=== PATIENT | male | born 1935 ===

== ENCOUNTER 2022-10-08 17:16 | Inpatient (IN) | payer OTHER ==
[~2022-10-08] VITALS: Ht 177.8 cm; Wt 91.2 kg
--- NOTE | 2022-10-08 18:52 | NUR ---
Admit note Receivied report from Janette at [facility], pt to room via ambulance transport at 1745. Pt alert, oriented, [place]. Pt orineted to room and call light. Educated on fall risk and bed alarm. Bed in low, locked, bed alarm on, call light within reach. Pt denies pain, chest pain/pressure, sob, nausea, dizziness and numb/tingling. Blood noted at groin and noted coming from meatus, catheter in place, placed at previous hospital, mega care and cath care completed. Tele junctional rhythm noted, md aware, bp stable. Spo2 >90% on ra, breahting even and unlabored. Abd soft, nontender with normoactive bt. Edema noted ble 1+. Other vss. No other acute changes noted. Will continue to monitor.
--- NOTE | 2022-10-08 21:02 | NUR ---
ASSUMPTION OF CARE THIS RN ASSUMED CARE OF PATIENT AT 1900. REPORT TAKEN FROM RUDY GRAY. /DAUGHTER AT BEDSIDE DURING SHIFT CHANGE. THIS RN WENT OVER MEDICAL HISTORY D/T PATIENT BEING VERY [place]. PATIENT A&O X3, UNSURE OF SPECIFIC DAY BUT KNOWN MONTH/YEAR. FORGETFUL OF STAFF/CARE AND CURRENT ILLNESS. OTHERWISE PATIENT ANSWERS QUESTIONS APPROPRIATELY AND IS COOPERATIVE WITH CARE. PATIENT WEAK WITH TURNING. SALINAS CATHETER PRESENT PRIOR TO ADMIT AND DRAINING TO GRAVITY; BLOOD NOTED AROUND URETHRA. MEPIPLEX ON COCCYX, BILATERAL ELBOWS AND HEELS D/T REDNESS AND SORENESS. ACCELERATED JUNCTIONAL RHTYHM NOTED ON MONITOR WITH HR 60-70'S. BP STABLE. AFEBRILE. SPO2 >92% ON RA. 1L NS INFUSING PER EMAR. BED IN LOWEST POSITION AND CALL LIGHT WITHIN REACH. BED ALARM ON FOR SAFETY.
--- NOTE | 2022-10-08 21:30 | NUR ---
PATIENT UPDATE PATIENT WITH 24 SECONDS OF VTACH ON MONITOR. PATIENT ASSESSED DURING AND WAS ABLE TO ANSWER QUESTIONS AND DENIED ANY S/S OF DISTRESS; NO S/S OF DISTRESS NOTED BY THIS RN EITHER. PATIENT RETURNED TO ACCELERATED JUNCTIONAL RHYTHM AFTER. VITALS REMAIN STABLE. CALL PLACED TO MD WALKER REGARDING EPISODE. MD WALKER WITH ORDERS FOR MAGNESIUM DRAW ADDED ONTO MORNING LABS; NO FURTHER ORDERS OR INTERVENTIONS DONE AT THIS TIME.
[2022-10-09 01:42] LABS: Albumin, Blood 2.3 g/dL (3.4-5.0); Albumin/Globulin Ratio 0.7 (0.8-1.8); Bilirubin, Total 1.4 mg/dL (0.1-1.0); Bun/Creatinine Ratio 14.6 (12.0-20.0); Calcium, Blood 7.9 mg/dL (8.5-10.1); Creatinine, Blood 3.5 mg/dL (0.60-1.20); Globulin, Blood 3.3 g/dL (2.2-4.0); Magnesium, Blood 1.8 mg/dL (1.6-2.4); Potassium, Blood 4.2 mmol/L (3.5-5.5); Total Protein, Blood 5.6 g/dL (6.4-8.2)
[2022-10-09 01:50] LABS: Hematocrit 34.9 % (37.0-53.0); Mean Corpuscular HGB Conc 34.4 g/dL (31.5-36.5); Mean Corpuscular Volume 90 fL (80-100); Mean Platelet Volume 12.6 fL (9.1-12.4); Platelet Count 130 K/mm3 (150-400); RDW Coefficient Variation 14.1 % (11.7-14.2); RDW Standard Deviation 46.1 fL (35.1-46.3); Red Blood Cell Count 3.87 M/mm3 (4.30-5.90); White Blood Cell Count 41.05 K/mm3 (4.00-11.30)
[2022-10-09 02:22] LABS: BAND PERCENT MAN 6 % (0-8); BASOPHILS PERCENT MAN 0 % (0-2); EOSINOPHILS PERCENT MAN 0 % (0-6); METAMYELOCYTE ABSOLUTE MAN 0.82 K/mm3 (0.00-0.00); METAMYELOCYTE PERCENT MAN 2 % (0-0); MONOCYTES ABSOLUTE MAN 0.82 K/mm3 (0.16-1.47); MONOCYTES PERCENT MAN 2 % (4-13); SEG NEUTROPHILS PERCENT MAN 90 % (41-73); TOTAL CELLS COUNTED 100
--- NOTE | 2022-10-09 04:52 | NUR ---
SHIFT SUMMARY NO ACUTE CHANGES SINCE PREVIOUS NOTE. NO CHANGES TO NEURO. MEPIPLEX ON BILATERAL HEELS, ELBOWS, AND COCCYX C/D/I. ASSISTING WITH REPOSITIONING NEEDED. CATHETER DRAINING TEA COLORED URINE TO GRAVITY, PT CONTINUES TO HAVE A SMALL AMOUNT OF BLOOD AT URETHRAL MEATUS. BP STABLE. AFEBRILE. SPO2 >92% ON RA. BED IN LOWEST POSITION, BED ALARM ON, CALL LIGHT WITHIN REACH. THIS RN WILL CONTINUE TO MONITOR UNTIL SHIFT CHANGE AT 0700.
--- NOTE | 2022-10-09 13:28 | NUR ---
Echocardiogram completed.
--- NOTE | 2022-10-09 18:35 | NUR ---
PT SUMMARY: PT ALERT AND ORIENTED X3, FORGETFUL AT TIMES, [place], HEARING AID IN USE ALL SHIFT. VITALS HRR JR BBB 60-80'S, BP SYSTOLIC 140-160'S, SATS ABOVE 95% ON RA, AFEBRILE. PT 1PA TO TRANSFER VIA GAITBELT AND WALKER, PT IS WEAK AND DECONDITIONED IN GENERAL, PT HAS BEEN GETTING UP TO USE BEDSIDE COMMODE HAD 3 EPISODES OF SMALL LOOSE BMS MOSTLY PASSING GAS. POOR APPETITE. PT STARTED ON MAINTENANCE FLUIDS NS RUNNING AT 75MLS/HR AT THIS TIME, URINE CLOUDY DARK YELLOW IN COLOR HAD 400MLS OUTPUT FOR THE SHIFT. DAUGHTER AND CAME IN ALL THE WAY FROM [place], WAS GIVEN UPDATE REGARDING PT'S STATUS. CHEST XRAY AND ECHO WAS DONE TODAY, AWAITING FOR RESULTS, FOR REPEAT EKG IN AM. PT HAS BEEN PLEASANT AND COOPERATIVE FOR THE SHIFT, CALLS APPROPIRATELY, PT NOW IN BED RESTING CALL LIGHTS IN REACH WILL REPORT TO ONCOMING SHIFT
--- NOTE | 2022-10-09 22:40 | NUR ---
ASSUMPTION OF CARE THIS RN ASSUMED CARE OF PATIENT AT 1900. REPORT TAKEN FROM DANIEL GRAY. PATIENT ALERT AND ORIENTED X3. KNOWS MONTH/YEAR BUT CONFUSED ABOUT DATE. PT REMEMBERED THIS RN FROM PREVIOUS NIGHT. PATIENT DENIES CHEST PAIN/PRESSURE. ACC JUNCTIONAL RHYTHM NOTED ON MONITOR WITH BBB AND OCCASIONAL PVC RUNS. HR 60-70'S. BP STABLE. AFEBRILE. ON RA WITH SPO2 >92%. PATIENT IS ABLE TO MAKE NEEDS KNOWN. KIANA. HEARING AIDES CHARGING ON BEDSIDE TABLE. ELEVATING BLE. REPOSITIONING Q2HRS AND NEEDED D/T WEAKNESS. PATIENT IS ABLE TO REPOSITION SELF IN BED BUT REQUIRES OCCASIONAL ASSISTANCE. NS INFUSING AT 75MLS/HR PER EMAR. SALINAS CATHETER DRAINING DARK/TEA/LYNETTE COLORED URINE. BLOOD NOTED AT MEATUS. MEPIPLEXES ON BILAT ELBOWS AND HEELS. MEPIPLEX ON COCCYX. BED IN LOWEST POSITION AND CALL LIGHT WITHIN REACH.
[2022-10-10 04:14] LABS: BASOPHILS PERCENT AUTO 0 % (0-2); EOSINOPHILS ABSOLUTE AUTO 0.22 K/mm3 (0.00-0.68); EOSINOPHILS PERCENT AUTO 1 % (0-6); Hemoglobin 11.8 g/dL (13.5-17.5); IMMATURE GRAN PERCENT AUTO 1 % (0-1); LYMPHOCYTES ABSOLUTE AUTO 0.69 K/mm3 (0.84-5.20); LYMPHOCYTES PERCENT AUTO 3 % (21-46); MONOCYTES ABSOLUTE AUTO 0.74 K/mm3 (0.16-1.47); MONOCYTES PERCENT AUTO 3 % (4-13); Mean Corpuscular HGB 30.8 pg (26.0-34.0); Mean Corpuscular HGB Conc 34.7 g/dL (31.5-36.5); Mean Corpuscular Volume 89 fL (80-100); Mean Platelet Volume 12.5 fL (9.1-12.4); NEUTROPHILS PERCENT AUTO 93 % (41-73); Platelet Count 135 K/mm3 (150-400); RDW Coefficient Variation 14.2 % (11.7-14.2); RDW Standard Deviation 45.7 fL (35.1-46.3); Red Blood Cell Count 3.83 M/mm3 (4.30-5.90); White Blood Cell Count 27.85 K/mm3 (4.00-11.30)
[2022-10-10 04:50] LABS: Albumin, Blood 2.2 g/dL (3.4-5.0); Albumin/Globulin Ratio 0.6 (0.8-1.8); Bilirubin, Total 0.9 mg/dL (0.1-1.0); Bun/Creatinine Ratio 20.1 (12.0-20.0); Calcium, Blood 7.9 mg/dL (8.5-10.1); Creatinine, Blood 3.38 mg/dL (0.60-1.20); Globulin, Blood 3.4 g/dL (2.2-4.0); Magnesium, Blood 1.6 mg/dL (1.6-2.4); Phosphorus, Blood 3.2 mg/dL (2.5-4.9); Potassium, Blood 3.9 mmol/L (3.5-5.5); Total Protein, Blood 5.6 g/dL (6.4-8.2)
--- NOTE | 2022-10-10 06:10 | NUR ---
SHIFT SUMMARY NO ACUTE CHANGES OVERNIGHT. PATIENT'S VITALS STABLE. NO CHANGES SINCE PREVIOUS NOTE. SEE ASSESSMENT. EKG RECEIVED THIS AM AT 0500, SEE CHART. PATIENT ASSISTED WITH REPOSITIONING Q2HRS OR NEEDED. EXTREMETIES ELEVATED. MEPIPLEX ON BILAT ELBOWS/HEELS AND COCCYX C/D/I. PATIENT CALLING APPROPRIATELY. SALINAS CATHETER PATENT AND DRAINING DARK YELLOW URINE TO GRAVITY. URINE OUTPUT IMPROVED DURING THIS SHIFT. NS INFUSING PER EMAR. BED IN LOWEST POSITION AND CALL LIGHT WITHIN REACH. THIS RN WILL CONTINUE TO MONITOR UNTIL SHIFT CHANGE AT 0700.
--- NOTE | 2022-10-10 11:50 | NUR ---
Pt resting in bed and is A&O. Dr Rock just leaving room. Pt's spouse and daughter at bedside. Pt requests this RN to speak with family and states being hard of hearing. Reviewed plan of care and offered therapeutic listening. Pt and family confirms Pt's wishes for DNR. Family reports having copy of POLST in care and will bring in. Continued supportive visit. Incident Response Lead in to see Pt. Ended visit. Daughter provides POLST. Obtained copy of POLST and sent to medical records via hospital tube sytem. Palliative Care will remain available
[2022-10-10 12:41] LABS: CPK Creatine Kinase 303 U/L (39-308); Lactate Dehydrogenase (Ld),Bld 373 U/L (100-240)
[2022-10-10 13:12] LABS: Source, Urine Clean Catch
[2022-10-10 13:49] LABS: Appearance, Urine Cloudy (Clear); Bilirubin, Urine Neg (Neg); Blood, Urine 4+ (Neg); Glucose Qualitative, Urine Neg (Neg); Ketones, Urine Neg (Neg); Leukocyte Esterase, Urine 3+ (Neg); Nitrite, Urine Neg (Neg); Protein, Urine 1+ (Neg); Specific Gravity, Urine 1.015 (1.003-1.022); Urobilinogen, Urine NORM (Normal)
[2022-10-10 15:28] LABS: Color, Urine Pale Yellow (P-Yellow)
[2022-10-10 15:30] LABS: Mucus Mod (0-Heavy); Squamous Epithelial Cells Few /hpf (Few); Transitional Epithelial Cells Mod /hpf (0-Rare)
[2022-10-10 15:31] LABS: Bacteria Many /hpf; Hyaline Casts 0-2 /lpf (0-2); White Blood Cells, Urine 50-100 /hpf (0-5)
[2022-10-10 15:32] LABS: Amorphous Mod (0-Heavy)
[2022-10-10 17:15] LABS: Eosinophils-Raw #,Urine 0; White Blood Cells Urine 50-100 /hpf (0-5)
--- NOTE | 2022-10-10 18:15 | NUR ---
SHIFT SUMMARY NO ACUTE CHANGES THIS SHIFT. PT REMAINS A/O X3 WITH SOME FORGETFULNESS AND COOPERATIVE WITH CARE. NS INFUSING AT 75/HR PER EMR. BRAD IS PATENT AND DRAINING TO GRAVITY. PT WORKED WITH PHYSICAL THERAPY THIS SHIFT AND IS CURRENTLY UP IN THE CHAIR FOR DINNER. VSS.
--- NOTE | 2022-10-10 19:54 | NUR ---
ASSUMPTION OF CARE THIS RN ASSUMED CARE OF PATIENT AT 1900. REPORT TAKEN FROM WENDY GRAY. PATIENT IS ALERT AND ORIENTED FULLY. ABLE TO MAKE NEEDS KNOWN. OCCASIONALLY FORGETFUL. ACC JUNCTIONAL RHYTHM NOTED WITH BBB, HR 60-70'S. WHILE PATIENT IS SLEEPING HR 40-60. PATIENT WITH NO S/S OF CARDIAC OR RESPITATORY DISTRESS. DENIES ALL PAIN. NEEDS ASSISTANCE WITH REPOSITIONING IN BED. WEAKNESS NOTED IN BLE. [place]. EXTREMETIES ELEVATED. MEPIPLEX ON BILAT HEELS/ELBOWS AND COCCYX TO PREVENT BREAKDOWN. OTHER VSS. BED IN LOWEST POSITION AND CALL LIGHT WITHIN REACH.
--- NOTE | 2022-10-11 04:58 | NUR ---
SHIFT SUMMARY NO ACUTE CHANGES DURING THIS SHIFT. PATIENT CONTINUES TO BE IN AN ACC JUNCTIONAL RHYTHM WITH BBB WHILE AWAKE WITH HR 60-70'S AND JUNCTIONAL WITH HR 40-60'S WHILE ASLEEP. BP STABLE. PATIENT WITH COMPLAINTS OF LEFT FOOT TOE PAIN; MEDICATED PER EMAR AND REPOSITIONED FOR COMFORT. OTHER VITALS STABLE. MEPIPLEX ON BILAT HEELS/ELBOWS AND ON COCCYX. REPOSITIONING Q2HRS AND NEEDED. PATIENT CONTINUES TO BE WEAK IN BLE. URINE OUTPUT DURING THIS SHIFT IMPROVED FROM PREVIOUS SHIFTS. NS INFUSING AT 75MLS/HR. PATIENT ALERT AND ORIENTED X3, CALM AND COOPERATIVE WITH CARE, [place], CALLING APPROPRIATELY. BED IN LOWEST POSITION AND CALL LIGHT WITHIN REACH. THIS RN WILL CONTINUE TO MONITOR UNTIL SHIFT CHANGE AT 0700.
[2022-10-11 04:59] LABS: Albumin, Blood 2.2 g/dL (3.4-5.0); Anion Gap 6 mmol/L (6-16); Blood Urea Nitrogen 70 mg/dL (8-24); Bun/Creatinine Ratio 24.8 (12.0-20.0); CO2, Blood 21 mmol/L (21-32); Calcium, Blood 8.2 mg/dL (8.5-10.1); Chloride, Blood 115 mmol/L (98-108); Creatinine, Blood 2.82 mg/dL (0.60-1.20); Glomerular Filtration Rate 21 (60-); Glucose, Blood 102 mg/dL (70-99); Phosphorus, Blood 3.4 mg/dL (2.5-4.9); Potassium, Blood 3.9 mmol/L (3.5-5.5); Sodium, Blood 142 mmol/L (136-145)
--- NOTE | 2022-10-11 10:54 | NUR ---
ASSUMPTION OF CARE ASSUMED CARE OF PT AT 0700, REPORT RECIEVED FROM JANE GRAY. PT A/OX3 WITH SOME CONFUSION. PT ABLE TO MOVE ALL EXTREMITIES, AMBULATES WITH FWW AND 1-2 STAFF MEMBERS. PT TRANSFERED FROM BED TO CHAIR WITH ASSITANCE AND FWW AT TIME OF ASSESSMENT, TOLERATED WELL. NO REPORT OF SOB/DYSPNEA. LUNG SOUNDS CLEAR TO DIM. SATS IN THE 90'S ON RA. NO REPORT OF CHEST PAIN/PRESSURE AT THIS TIME. PT HAS 2+ EDEMA IN BLE. IGNACIA RN REPORTED PT HAS EDEMA IN LEFT HAND FROM AN IV THAT INFILTRATED DURING THE NIGHT. NO REPORT OF N/V. PT REPORTS HAVING PAIN IN HIS BLE FROM THE CALF DOWN. REPORTS THAT IT IS A "STABBING, TINGLING FEELING THAT HAS BEEN GOING ON SINCE I FELL 8 MONTHS AGO." PT REPORTS LOSING SLEEP DUE TO FEET PAIN.
--- NOTE | 2022-10-11 17:19 | NUR ---
SHIFT SUMMARY PT A/OX3 WITH SOME CONFUSION AT TIMES. PT COOPERATIVE OF CARE. VSS THROUGHOUT SHIFT WITH 02 SATS >95% ON RA. NO REPORT OF CHEST PAIN/PRESSURE THROUGHOUT SHIFT. NO REPORT OF SOB/DYSPNEA THROUGHOUT SHIFT. PT WORKED WITH PHYSICAL THERAPIST TODAY, TOLERATED WELL, SEE THERAPIST NOTES. PT REPORTED "STABBING, TINGLING" OF BLE FROM CALF DOWN, DR NOTIFIED, GABAPENTIN ORDERED FOR BEDTIME. SALINAS REMOVED PER ORDER, NO ELIMINATION SINCE CATH REMOVAL, PT DOES REPORT THE URGE TO URINATE AT TIMES ELIZABETH IS UNABLE TO GENERATE A STREAM. NS RUNNING PER EMAR.
[2022-10-12 03:46] LABS: Hematocrit 35.6 % (37.0-53.0); Hemoglobin 12.2 g/dL (13.5-17.5); Mean Corpuscular HGB 30.3 pg (26.0-34.0); Mean Corpuscular HGB Conc 34.3 g/dL (31.5-36.5); Mean Corpuscular Volume 88 fL (80-100); Mean Platelet Volume 12.2 fL (9.1-12.4); Platelet Count 151 K/mm3 (150-400); RDW Standard Deviation 45.1 fL (35.1-46.3); Red Blood Cell Count 4.03 M/mm3 (4.30-5.90)
[2022-10-12 03:48] LABS: BASOPHILS ABSOLUTE AUTO 0.06 K/mm3 (0.00-0.23); BASOPHILS PERCENT AUTO 1 % (0-2); EOSINOPHILS ABSOLUTE AUTO 0.35 K/mm3 (0.00-0.68); EOSINOPHILS PERCENT AUTO 4 % (0-6); IMMATURE GRAN ABSOLUTE AUTO 0.25 K/mm3 (0.00-0.10); IMMATURE GRAN PERCENT AUTO 3 % (0-1); LYMPHOCYTES ABSOLUTE AUTO 0.91 K/mm3 (0.84-5.20); LYMPHOCYTES PERCENT AUTO 11 % (21-46); MONOCYTES ABSOLUTE AUTO 1.25 K/mm3 (0.16-1.47); MONOCYTES PERCENT AUTO 15 % (4-13); NEUTROPHILS ABSOLUTE AUTO 5.66 K/mm3 (1.96-9.15); NEUTROPHILS PERCENT AUTO 67 % (41-73); White Blood Cell Count 8.48 K/mm3 (4.00-11.30)
[2022-10-12 04:04] LABS: Albumin, Blood 2.2 g/dL (3.4-5.0); Anion Gap 6 mmol/L (6-16); Blood Urea Nitrogen 64 mg/dL (8-24); Bun/Creatinine Ratio 29.8 (12.0-20.0); CO2, Blood 22 mmol/L (21-32); Calcium, Blood 8.3 mg/dL (8.5-10.1); Chloride, Blood 112 mmol/L (98-108); Creatinine, Blood 2.15 mg/dL (0.60-1.20); Glomerular Filtration Rate 29 (60-); Glucose, Blood 116 mg/dL (70-99); Phosphorus, Blood 3.8 mg/dL (2.5-4.9); Potassium, Blood 3.8 mmol/L (3.5-5.5); Sodium, Blood 140 mmol/L (136-145)
[2022-10-12 04:11] LABS: COMPLEMENT C3, SERUM 125 mg/dL (82-167); COMPLEMENT C4, SERUM 22 mg/dL (12-38)
--- NOTE | 2022-10-12 04:23 | NUR ---
SHIFT SUMMARY/TRANSFER MED NO TELE STATUS PATIENT ALERT AND ORIENTED, COOPERATIVE WITH CARE. VSS, PATIENT ON RA WITH O2 SAT >90%. PATIENT SLEPT FOR MAJORITY OF SHIFT PRIOR TO TRANSFER. PATIENT AMBULATED INTO BATHROOM WITH MINIMAL ASSIST WITH ADEQUATE OUTPUT THIS SHIFT. NO OTHER CHANGES. REPORT GIVEN TO MEDICAL FLOOR NURSE. PATIENT TRANSFERRED WITH ALL BELONGINGS.
[2022-10-12 08:37] LABS: Albumin, Blood 2.2 g/dL (3.4-5.0); Albumin/Globulin Ratio 0.6 (0.8-1.8); Bilirubin, Direct 0.4 mg/dL (0.0-0.3); Bilirubin, Indirect 0.4 mg/dL (0.1-0.7); Bilirubin, Total 0.8 mg/dL (0.1-1.0); Globulin, Blood 3.5 g/dL (2.2-4.0); Total Protein, Blood 5.7 g/dL (6.4-8.2)
--- NOTE | 2022-10-12 17:24 | NUR ---
SHIFT SUMMARY: PATIENT A&OX4, [place] AND SOME FORGETFULL. CALM, PLEASANT AND COOPERATIVE c CARE. USES CALL LIGHT APPROPRIATELY AND ABLE TO MAKE NEEDS KNOWN. PATIENT DENIES CP/PRESSURE. ON TELE, JUNCTIONAL RHYTHM c BBB, HR OF 82 BPM, PER BANANA HANDLER SHARRI JENSEN. RA, LUNGS CLEAR/DIM T/O TO AUSCULTATION. ENHANCED ISOLATION FOR COVID POSITIVE. KIDNEY FUNCTION IS IMPROVING. PATIENT REPORTS FEELING BETTER TODAY COMPARED YESTERDAY. RECEIVED IV ABX. PATIENT WORK c PT MOBILITY THIS AM AND TOLERATED WELL. SITTING UP IN THE RECLINER CHAIR c BLE ELEVATED T/O SHIFT. UP c 1 ASSIST AND FWW. IV TO R AC SALINE LOCKED. VITAL SIGNS REVIEWED. CALL LIGHT IN REACH.
--- NOTE | 2022-10-13 05:15 | NUR ---
SHIFT SUMMARY 86 YR M ADMITTED ON 10/08/22 FOR EUROSEPSIS. TRANSFERED FROM PCU TO MED UNIT ON 10/11/22. DNR. NO ACUTE CHANGES THIS SHIFT. PT IS A VERY PLEASANT GENTLEMAN AND IS COOPERATIVE WITH CARE. NO C/O PAIN OR DISCOMFORT THIS SHIFT. HE HAS SLEPT FOR MOST OF THIS SHIFT STSTING THAT HE HAS NOT SLEPT WELL IN DAYS. HE STATES HE IS COMFORTABLE.
[2022-10-13 06:46] LABS: Iron Serum 50 ug/dL (65-175); Percent Saturation 26.2 % (20.0-50.0); Total Iron Binding Capacity 191 ug/dL (250-450)
[2022-10-13 07:09] LABS: Albumin, Blood 2.3 g/dL (3.4-5.0); Anion Gap 6 mmol/L (6-16); Blood Urea Nitrogen 55 mg/dL (8-24); Bun/Creatinine Ratio 31.8 (12.0-20.0); CO2, Blood 24 mmol/L (21-32); Calcium, Blood 8.4 mg/dL (8.5-10.1); Chloride, Blood 112 mmol/L (98-108); Creatinine, Blood 1.73 mg/dL (0.60-1.20); Ferritin, Serum 475 ng/mL (26-388); Glomerular Filtration Rate 38 (60-); Glucose, Blood 115 mg/dL (70-99); Phosphorus, Blood 3.9 mg/dL (2.5-4.9); Potassium, Blood 3.8 mmol/L (3.5-5.5); Sodium, Blood 142 mmol/L (136-145)
[2022-10-13] MEDS ORDERED: GABA100 PO (12:54)
[2022-10-13] MEDS ORDERED: METO25ER PO (12:54)
[2022-10-13] MEDS ORDERED: MIRALAX17 GM PO (12:55)
[2022-10-13] MEDS ORDERED: VISBIOME 112.51 EACH PO (12:57)
[2022-10-13] MEDS ORDERED: FOLI1 PO (12:57)
[2022-10-13] MEDS ORDERED: ASPI81CH PO (12:57)
[2022-10-13] MEDS ORDERED: CEFU500T30 PO (12:57)
--- NOTE | 2022-10-13 16:13 | NUR ---
PT DISCHARGED HOME WITH FAMILY. DISCHARGE INSTRUCTIONS AND EDUCATION MATERIAL EXPLAINED TO PT AND FAMILY. NO NEW QUESTIONS OR CONCERNS. MEDICATIONS FAXED TO SPECIFIED PHARMACY. PT REMINDED TO FOLLOW UP WITH [employer] ATTORNEY AND RETURNED ITEM CLERK. IV REMOVED AND PT TOLERATED WELL. ALL BELONGINGS SENT HOME WITH PT. PT TAKEN BY WHEELCHAIR TO WAITING VEHICLE.
[2022-10-14 16:08] LABS: A/G RATIO 0.9 (0.7-1.7); ALBUMIN 2.6 g/dL (2.9-4.4); ALPHA-1-GLOBULIN 0.4 g/dL (0.0-0.4); ALPHA-2-GLOBULIN 0.7 g/dL (0.4-1.0); BETA GLOBULIN 0.8 g/dL (0.7-1.3); GLOBULIN, TOTAL 2.8 g/dL (2.2-3.9); M-SPIKE Not Observed g/dL (Not Observed); PROTEIN, TOTAL, SERUM 5.4 g/dL (6.0-8.5)
[2022-10-15 15:10] LABS: M-SPIKE, % Not Observed % (Not Observed); PROTEIN,TOTAL,URINE 18.6 mg/dL (Not Estab.)
== END 2022-10-13 14:31 | disposition home or self-care (01) | DRG 871 ==
LOC: PCU 18:08 → MEDS 18:08 → PCU 10-11 11:34 → MEDS 10-12 04:05
PROVIDERS: Internal Medicine; Internal Medicine Nephrology; ADMIT Internal Medicine
DX: A41.4 Sepsis due to anaerobes (principal); I21.A1 Myocardial infarction type 2; U07.1 COVID-19; I50.21 Acute systolic (congestive) heart failure; E87.20 Acidosis, unspecified; N39.0 Urinary tract infection, site not specified; N17.9 Acute kidney failure, unspecified; I48.20 Chronic atrial fibrillation, unspecified; I42.0 Dilated cardiomyopathy; Z66 Do not resuscitate; H91.90 Unspecified hearing loss, unspecified ear; E86.0 Dehydration; I27.20 Pulmonary hypertension, unspecified; N18.30 Chronic kidney disease, stage 3 unspecified; E88.09 Other disorders of plasma-protein metabolism, not elsewhere classified; I08.1 Rheumatic disorders of both mitral and tricuspid valves; B96.89 Other specified bacterial agents as the cause of diseases classified elsewhere; R65.20 Severe sepsis without septic shock; D63.1 Anemia in chronic kidney disease; E53.8 Deficiency of other specified B group vitamins; D69.59 Other secondary thrombocytopenia; G62.9 Polyneuropathy, unspecified; Z28.21 Immunization not carried out because of patient refusal; Z85.9 Personal history of malignant neoplasm, unspecified; Z92.21 Personal history of antineoplastic chemotherapy; Z92.3 Personal history of irradiation
CPT/HCPCS: 36415; 71045; 76770; 80053; 80069; 80076; 81001; 82550; 82570; 82607; 82728; 82746; 83540; 83550; 83605; 83615; 83735; 83880; 84100; 84156; 84165; 84166; 84484; 85025; 86160; 87086; 87205; 93005; 93010; 93306; 93308; 93321; 97110; 97116; 97162; 97530; A9270; J0696; J1644; J7030